=== PATIENT | female | born 1990 | race Caucasian/White ===

== ENCOUNTER 2017-11-10 13:19 | Inpatient (IN) | payer BC ==
[2017-11-10] MEDS ORDERED: MEPIVACAINE HCL 1% MPF 30 ML SOL INFIL PRN (19:31)
[2017-11-10] MEDS ORDERED: OXYTOCIN 10000 MU/ML SOL IM PRN (19:31)
[2017-11-10] MEDS ORDERED: FENTANYL 100MCG/2ML SOL IV PRN (19:31)
[2017-11-10] MEDS ORDERED: CARBOPROST 250 MCG/ML SOL IM PRN (19:31)
[2017-11-10] MEDS ORDERED: LACTATED RINGERS 1,000 ML IV PRN (19:31)
[2017-11-10] MEDS ORDERED: SODIUM CHLORIDE 0.9% FLUSH 10 ML SOL IV PRN (19:31)
[2017-11-10] MEDS ORDERED: METHYLERGONOVINE MALEATE 0.2 MG/ML SOL IM PRN (19:31)
[2017-11-10] MEDS: SODIUM CHLORIDE 0.9% FLUSH 10 ML SOL IV SCH (20:00)
[2017-11-11] MEDS ORDERED: SODIUM CHLORIDE 0.9% 50 ML 25 ML IV PRN (00:23)
[2017-11-11] MEDS ORDERED: TERBUTALINE SULFATE 1 MG/ML SOL SC PRN (00:25)
[2017-11-11] MEDS ORDERED: AMPICILLIN 1 GM PDS 2 GM in SODIUM CHLORIDE 0.9% 100 ML 100 ML IV SCH (00:30)
[2017-11-11] MEDS ORDERED: OXYTOCIN 10000 MU/ML 20,000 MU in LACTATED RINGERS 1,000 ML IV SCH (00:30)
[2017-11-11] MEDS ORDERED: AMPICILLIN 1 GM PDS ONE ×5 (00:33→17:56)
[2017-11-11] MEDS: LACTATED RINGERS 1,000 ML IV SCH ×7 (01:33→23:00)
[2017-11-11] MEDS: SODIUM CHLORIDE 0.9% FLUSH 10 ML SOL IV SCH ×3 (04:39→19:51)
[2017-11-11] MEDS: AMPICILLIN 1 GM PDS 1 GM in SODIUM CHLORIDE 0.9% 100 ML 100 ML IV SCH ×4 (04:44→18:15)
[2017-11-11] MEDS ORDERED: NALOXONE HYDROCHLORIDE 0.4 MG/ML SOL IV PRN (12:43)
[2017-11-11] MEDS ORDERED: EPHEDRINE SULFATE 50 MG/ML SOL IV PRN (12:43)
[2017-11-11] MEDS ORDERED: NALBUPHINE HCL 20 MG/ML SOL IV PRN (12:43)
[2017-11-11] MEDS ORDERED: DIPHENHYDRAMINE 50 MG/ML SOL IV PRN (12:43)
[2017-11-11] MEDS ORDERED: LIDOCAINE HCL 2% MPF SOL ONE ×3 (12:51→20:06)
[2017-11-11 13:04] LABS: BASOPHILS % (AUTO) 1 % (0-3); EOSINOPHILS % (AUTO) 4 % (0-9); HEMATOCRIT 37 % (35-47); MEAN CORPUSCULAR HGB CONC 34.3 gm/dl (32.0-36.0); MEAN CORPUSCULAR VOLUME 90 fL (81-99); NEUTROPHILS % (AUTO) 59.1 % (37-80)
[2017-11-11] MEDS ORDERED: FENTANYL 250 MCG/ 5ML SOL ONE (13:48)
[2017-11-11] MEDS ORDERED: ROPIVACAINE HYDROCHLORIDE 5 MG/ML SOL ONE (13:48)
[2017-11-11] MEDS ORDERED: CITRIC ACID/SODIUM CITRATE SOL PO ONE (20:00)
[2017-11-11] MEDS ORDERED: CEFAZOLIN SODIUM 1 GM PDS ONE ×2 (20:12→20:53)
[2017-11-11] MEDS ORDERED: OXYTOCIN 10000 MU/ML SOL ONE (20:14)
[2017-11-11] MEDS ORDERED: ONDANSETRON HCL 4 MG/2 ML SOL ONE (20:14)
[2017-11-11] MEDS ORDERED: PHENYLEPHRINE HYDROCHLORIDE 10 MG/ML SOL ONE (20:14)
[2017-11-11] MEDS ORDERED: MORPHINE SULFATE 0.5 MG/ML SOL ONE (20:37)
[2017-11-11] MEDS ORDERED: LACTATED RINGERS 1,000 ML with OXYTOCIN 10000 MU/ML 20 MU IV ONE (21:01)
[2017-11-11 21:03] LABS: ABO A; ANTIBODY SCREEN Negative; RH TYPE Positive
[2017-11-11] MEDS ORDERED: KETOROLAC TROMETHAMINE 30 MG/ML SOL IV PRN (23:00)
[2017-11-12] MEDS: CEFAZOLIN (PREMIX) 1 GM 1 GM/50 ML SOL IV SCH ×2 (00:56→03:20)
[2017-11-12] MEDS: AMPICILLIN 1 GM PDS 1 GM in SODIUM CHLORIDE 0.9% 100 ML 100 ML IV SCH (00:57)
[2017-11-12] MEDS: LACTATED RINGERS 1,000 ML IV SCH ×4 (04:47→08:41)
[2017-11-12] MEDS: SODIUM CHLORIDE 0.9% FLUSH 10 ML SOL IV SCH ×3 (04:48→17:18)
[2017-11-12] MEDS ORDERED: TEMAZEPAM 15MG 15 MG CAP PO PRN (05:03)
[2017-11-12] MEDS ORDERED: BISACODYL 10 MG SUP PR PRN (05:03)
[2017-11-12] MEDS ORDERED: WITCH HAZEL 1 EA PAD TOP PRN (05:03)
[2017-11-12] MEDS ORDERED: ONDANSETRON HCL 4 MG/2 ML SOL IV PRN (05:03)
[2017-11-12] MEDS ORDERED: FLEET ENEMA PR PRN (05:03)
[2017-11-12] MEDS ORDERED: BENZOCAINE/MENTHOL 1 SPR TOP PRN (05:03)
[2017-11-12] MEDS ORDERED: DIPHENHYDRAMINE 25 MG CAP PO PRN (05:03)
[2017-11-12] MEDS ORDERED: ACETAMINOPHEN 325 MG PO PRN (05:03)
[2017-11-12] MEDS ORDERED: APAP/HYDROCODONE 325/5 TAB PO PRN (05:03)
[2017-11-12] MEDS ORDERED: METHYLERGONOVINE MALEATE 0.2 MG TAB PO PRN (05:03)
[2017-11-12] MEDS: DOCUSATE SODIUM 100 MG SGL PO SCH ×2 (08:43→20:11)
[2017-11-12] MEDS: IBUPROFEN 600 MG TAB PO PRN ×2 (08:43→17:18)
[2017-11-12] MEDS ORDERED: DOCUSATE SODIUM 100 MG SGL ONE (20:10)
[2017-11-13] MEDS: IBUPROFEN 600 MG TAB PO PRN ×3 (01:28→16:52)
[2017-11-13] MEDS: SODIUM CHLORIDE 0.9% FLUSH 10 ML SOL IV SCH ×2 (02:30→12:21)
[2017-11-13] MEDS: LACTATED RINGERS 1,000 ML IV SCH (06:36)
[2017-11-13] MEDS ORDERED: FERROUS GLUCONATE 324 MG TABLET ONE (08:10)
[2017-11-13] MEDS: DOCUSATE SODIUM 100 MG SGL PO SCH ×2 (08:20→21:06)
[2017-11-13] MEDS: FERROUS GLUCONATE 324 MG TAB PO SCH (08:20)
[2017-11-14 05:00] VITALS: BP 116/80; PULSE 109; RESP 18; TEMP 98; O2SAT 97
[2017-11-14] MEDS: IBUPROFEN 600 MG TAB PO PRN (06:05)
[2017-11-14] MEDS ORDERED: FERROUS GLUCONATE 324 MG TABLET ONE (09:24)
[2017-11-14] MEDS: DOCUSATE SODIUM 100 MG SGL PO SCH (10:00)
[2017-11-14] MEDS: FERROUS GLUCONATE 324 MG TAB PO SCH (10:00)
== END 2017-11-14 12:25 | disposition home or self-care (01) | DRG 540 ==
LOC: OB 18:52 → OBSVTOIN 18:52 → OB 11-11 21:30
PROVIDERS: ADMIT Family Medicine; ATTEND Family Medicine
PROC: 0U7C7ZZ Dilation of Cervix, Via Natural or Artificial Opening (ICD-10-PCS; 2017-11-10)
PROC: 10907ZC Drainage of Amniotic Fluid, Therapeutic from Products of Conception, Via Natural or Artificial Opening (ICD-10-PCS; 2017-11-11)
PROC: 10D00Z1 Extraction of Products of Conception, Low, Open Approach (ICD-10-PCS; principal; 2017-11-11 20:13)
DX: O62.0 Primary inadequate contractions (principal); O99.824 Streptococcus B carrier state complicating childbirth; O32.8XX0 Maternal care for other malpresentation of fetus, not applicable or unspecified; Z3A.40 40 weeks gestation of pregnancy; Z37.0 Single live birth
CPT/HCPCS: 36415; 59025; 85018; 85025; 86850; 86900; 86901; 99070; J0290; J0670; J0690; J2274; J2405; J2590; J2795; J3010; J3105